=== PATIENT | male | born 2000 | race Caucasian/White ===

== ENCOUNTER 2025-05-14 11:37 | Outpatient (CLI) | payer OTHER, SELFPAY ==
[2025-05-14 11:56] VITALS: BMI 23.1
--- NOTE | 2025-05-14 12:02 | ECG_ITS ---
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 Interpretive Statements EXERCISE STRESS TEST EXERCISE DATA: The patient was exercised by Ronald protocol. Baseline heart rate was 83 beats per minute. Baseline blood pressure was 127/78 millimeters of mercury. Maximal predicted heart rate was 196 beats per minute. Maximum heart rate achieved was 184 which was 93% of the maximum predicted heart rate. Maximum blood pressure was 165/68 millimeters of mercury. Total exercise time was 13 minutes. Maximum METs achieved was 17.2. The reason for ending the test was completion of protocol. The patient complained of shortness of breath during the stress test, which then resolved at the end of the test. ELECTROCARDIOGRAM: BASELINE: Showed sinus rhythm, normal axis, no significant ST-T changes at the baseline noted. [] EXERCISE: At the peak exercise level, [] No significant ST-T changes suggestive of ischemia noted. [] RECOVERY: During the recovery period, heart rate dropped appropriately. No significant ST-T changes in the recovery suggestive of ischemia noted. [] CONCLUSION: 1. Exercise capacity is excellent 2. Heart rate response was appropriate 3. Blood pressure response was appropriate 4. Symptoms not suggestive of ischemia. 5. Stress test does not show evidence of ischemia. Electronically Signed On 05-23-2025 21:28:46 CDT by Fco Escalante M.D. [email or web address]
[2025-05-14 12:36] VITALS: BP 104/73; PULSE 95
== END 2025-05-14 11:38 | disposition home or self-care (01) ==
PROVIDERS: PCP Registered Nurse; Visit Provider Registered Nurse
DX: R94.31 Abnormal electrocardiogram [ECG] [EKG] (principal)
CPT/HCPCS: 93017